=== PATIENT | female | born 1935 | race Caucasian/White ===

== ENCOUNTER → 2016-10-22 | Outpatient (CLI) | payer MEDICARE, OTHER ==
[~2016-10-22] MED LIST: ABILIFY5 MG PO; ATIVAN 1MG T1 MG/TAB PO; CEPHALEXIN500 M1 PO; COLACE 100100 MG/CAP PO; FLOMAX 0.40.4 MG/CAP PO; LEVSIN0.125 M1 SL; LIPITOR20 MG PO; MILK OF MA400 MG/5 M PO; MOBIC15 MG PO; NORCO 325 MG-101 TAB PO; NORCO 325 MG-51 TAB PO; PRISTIQ100 MG PO; PYRIDIUM 100MG100 MG PO; RESTORIL 1515 MG/CAP PO; SINEMET 25/101 UDTAB PO; SINGULAIR 110 MG/TAB PO; SYNTHROID0.075 MG/T PO
== END ==
LOC: BHSO 10:26
DX: F31.81 Bipolar II disorder (principal)

== ENCOUNTER → 2017-04-22 | Outpatient (CLI) | payer MEDICARE, OTHER | LOC: BHSO 10:13 | DX: F33.42 Major depressive disorder, recurrent, in full remission (principal) ==

== ENCOUNTER → 2017-10-21 | Outpatient (CLI) | payer MEDICARE, OTHER | LOC: BHSO 10:03 | DX: F06.32 Mood disorder due to known physiological condition with major depressive-like episode (principal) | CPT/HCPCS: G0463 ==

== ENCOUNTER → 2018-04-21 | Outpatient (CLI) | payer MEDICARE, OTHER | LOC: BHSO 10:04 | DX: F06.32 Mood disorder due to known physiological condition with major depressive-like episode (principal) | CPT/HCPCS: G0463 ==

== ENCOUNTER → 2018-10-13 | Outpatient (CLI) | payer MEDICARE, OTHER | LOC: BHSO 09:54 | DX: F33.42 Major depressive disorder, recurrent, in full remission (principal) | CPT/HCPCS: G0463 ==

== ENCOUNTER → 2019-04-18 | Outpatient (CLI) | payer MEDICARE, OTHER | LOC: BHSO 09:37 | DX: F33.42 Major depressive disorder, recurrent, in full remission (principal) | CPT/HCPCS: G0463 ==

== ENCOUNTER → 2020-01-22 | Outpatient (CLI) | payer MEDICARE, OTHER | LOC: BHSO 10:40 | DX: F33.42 Major depressive disorder, recurrent, in full remission (principal) ==